=== PATIENT | male | born 1980 | race Two or more races ===

== ENCOUNTER 2019-02-18 08:08 | Emergency (ER) | payer BC, MEDICAID ==
[~2019-02-18] VITALS: Ht 167.6 cm; Wt 95.3 kg
[2019-02-18 08:19] VITALS: BP 138/91
[2019-02-18] MEDS ORDERED: KETOROLAC TROMETH 60MG/2ML VIAL IM ONE (10:00)
== END 2019-02-18 10:29 | disposition home or self-care (01) ==
LOC: ER 08:10
DX: M10.9 Gout, unspecified (principal); F17.210 Nicotine dependence, cigarettes, uncomplicated
CPT/HCPCS: 96372; 99283; J1885

== ENCOUNTER 2021-02-07 15:53 | Emergency (ER) | payer BC, MEDICAID ==
[~2021-02-07] VITALS: Ht 170.2 cm; Wt 98.4 kg
[2021-02-07 16:51] LABS: Basophils # (auto) 0.1 10 ^3/uL (0-0.2); Basophils % (auto) 0.4 % (0.0-2.0); Eosinophils # (auto) 0 10 ^3/uL (0-0.8); Eosinophils % (auto) 0.2 % (0.0-7.0); Hematocrit 47.4 % (41.0-53.0); Hemoglobin 15.9 g/dL (13.5-17.5); Lymphocytes # (auto) 1.6 10 ^3/uL (0.4-5.4); Lymphocytes % (auto) 11.3 % (10.0-50.0); Mean Corpuscular Hemoglobin 28.5 pg (28.0-32.0); Mean Corpuscular Hgb Conc. 33.6 g/dL (32.0-36.0); Mean Corpuscular Volume 85.1 fL (80.0-100.0); Monocytes # (auto) 0.7 10 ^3/uL (0-1.3); Monocytes % (auto) 4.8 % (0.0-12.0); Neutrophils # (auto) 11.9 10 ^3/uL (1.6-8.6); Neutrophils % (auto) 83.3 % (37.0-80.0); Red Blood Cells 5.57 10^6/uL (4.5-5.90); Red Cell Distribution Width 13.6 % (11.8-14.3); White Blood Cell 14.3 10^3/uL (4.4-10.8)
[2021-02-07 17:17] LABS: Albumin 4.3 g/dL (3.4-5.0); BUN/Creatinine Ratio 11.1; Calcium 9.4 mg/dL (8.5-10.1); Potassium 4.3 mmol/L (3.5-5.1)
[2021-02-07 17:20] LABS: Bilirubin, Total 0.7 mg/dL (0.2-1.0); Total Protein 7.6 g/dL (6.4-8.2)
[2021-02-07 19:26] LABS: Urine Bacteria NONE SEEN /hpf (None Seen); Urine Blood TRACE /uL (Negative); Urine Mucus FEW (None Seen); Urine Specific Gravity 1.022 (1.001-1.035); Urine WBC 3 /hpf (0 - 3)
[2021-02-07] MEDS ORDERED: PERCOT PO (22:02)
[2021-02-07] MEDS ORDERED: ONDA-144 PO (22:02)
[2021-02-07] MEDS ORDERED: CIPR-273 PO (22:02)
[2021-02-07 22:10] VITALS: BP 139/79
== END 2021-02-07 22:08 | disposition home or self-care (01) ==
LOC: ER 15:53
DX: K85.90 Acute pancreatitis without necrosis or infection, unspecified (principal); F17.210 Nicotine dependence, cigarettes, uncomplicated
CPT/HCPCS: 36415; 74176; 80053; 81001; 83690; 85025